=== PATIENT | male | born 1990 | race Caucasian/White ===

== ENCOUNTER 2017-10-12 08:48 | Emergency (ER) | payer MEDICAID ==
[~2017-10-12] VITALS: Ht 172.7 cm; Wt 96.9 kg
[2017-10-12 08:51] VITALS: Ht 172.7 cm; Wt 96.9 kg
--- NOTE | 2017-10-12 09:51 | ERD ---
ER Documentation Chief Complaint Chief Complaint generalized rash x 3 days HPI 27-year-old male, previously healthy, presents to the emergency department complaining of multiple red, pruritic lesions, generalized that he noticed 3 days ago. He recently moved to a new place and had some friends visiting. Denies fevers, chills, headaches, weakness. The patient has been taking Benadryl with mild improvement of the symptoms. History provided by patient. ROS A 12-point review of systems was performed and negative other than presented in the history of present illness. SYSTEMIC symptoms: no fever, chills, no night sweats, no weight loss EYE symptoms: No blurred vision, no eye discharge OTOLARYNGEAL symptoms: No hearing loss. No ear pain, no sore throat CARDIOVASCULAR symptoms: No chest pain or discomfort, no palpitations. PULMONARY symptoms: No dyspnea, no cough, no wheezing. GASTROINTESTINAL symptoms: No abdominal pain, no nausea, no vomiting, no diarrhea MUSCULOSKELETAL symptoms: No arthralgias, no muscle aches. NEUROLOGY symptoms: No confusion, no syncope, no numbness or tingling. SKIN: Per HPI Medications Home Meds Active Scripts Hydrocortisone* Topical (Hydrocortisone* Topical) 2.5%-28.3 Gm Cream..g., 1 APPLIC TOP BID for 7 Days, #3 TUB Prov:PHUONG MENESES MD 10/12/17 Prednisone* (Prednisone*) 20 Mg Tab, 40 MG PO DAILY for 5 Days, TAB Prov:PHUONG MENESES MD 10/12/17 PMhx/Soc Medical and Surgical Hx: pt denies Medical Hx, pt denies Surgical Hx Hx Alcohol Use: No Hx Substance Use: No Hx Tobacco Use: No Physical Exam Vitals Vital Signs Date Time Temp Pulse Resp B/P Pulse Ox O2 Delivery O2 Flow Rate FiO2 10/12/17 08:51 97.1 90 18 133/60 98 Physical Exam Patient is in no acute distress, vital signs stable. Alert and fully oriented. EYES: PERRLA, EOMI, Sclera and conjunctiva appear normal. EARS: Canals clear, tympanic membranes WNL THROAT: Normal oropharynx. NECK: Supple, No lymphadenopathy. Full ROM without pain or tenderness. HEART: RRR, no rubs, murmurs, clicks or gallops. LUNGS: Clear to auscultation. ABDOMEN: Soft, non-tender without masses or hepatosplenomegaly. EXTREMITIES: No edema bilaterally. BACK: Full ROM, no deformity, normal back exam NEURO: Cranial nerves grossly intact, no motor or sensory deficit Skin: Multiple erythematous nodules, disseminated over trunk, neck and extremities. Procedures/MDM 27-year-old male, previously healthy, presents to the emergency department for evaluation of pruritic rash for 3 days. Vital signs stable, Physical exam revealed a generalized rash consistent of multiple erythematous nodules. Differential diagnosis include but not limited to: Contact dermatitis, erythema nodosum, abscesses, cellulitis, shingles. Low suspicion for systemic infection. Physical examination and clinical presentation consistent most likely with insect bites most likely bedbugs During the ED course the patient remained stable, no new complaints. Patient Results and clinical impression discussed with patient who agrees with management. The patient is stable to be treated outpatient and will be discharged home with a Rx for prednisone oral and hydrocortisone topical some side effects of prescribed medications (headache, rash, nausea, vomiting, diarrhea, drowsiness, habituation, bleeding, hypertension, interactions with other medications) were reviewed. The patient was instructed to follow up with the primary care provider in the next 48h. If symptoms persist, worsen or new symptoms develop, then patient should return to the ED immediately. Instructions explained and given directly by me to the patient in Wolof with acknowledgment and demonstrated understanding. Disclaimer: Inadvertent spelling and grammatical errors are likely due to EHR/ dictation software use and do not reflect on the overall quality of patient care. Also, please note that the electronic time recorded on this note does not necessarily reflect the actual time of the patient encounter. Departure Diagnosis: Primary Impression: Insect bite Condition: Stable Additional Instructions: Call your primary care doctor TOMORROW for an appointment during the next 1-2 days. See the doctor sooner or return here if your condition worsens before your appointment time. Thank you very much for allowing us to participate in your care. Your health and safety is our top priority at [facility]. Have prescriptions filled and follow precisely the directions on the label. Follow-up with primary care provider during the next 4 days and bring all the information and medications prescribed. If illness has not improved in 2 days, then make an appointment with primary care provider. If the provider is unavailable, return to the Emergency Department immediately. PHUONG MENESES MD Oct 12, 2017 09:51
[2017-10-12] MEDS ORDERED: HC30CR25 TOP (09:52)
[2017-10-12] MEDS ORDERED: PRED20TA PO (09:52)
== END 2017-10-12 10:08 | disposition home or self-care (01) ==
LOC: FTE 08:48
DX: S10.96XA Insect bite of unspecified part of neck, initial encounter (principal); W57.XXXA Bitten or stung by nonvenomous insect and other nonvenomous arthropods, initial encounter; Y92.9 Unspecified place or not applicable
CPT/HCPCS: 99283